=== PATIENT | female | born 1995 | race Caucasian/White ===

== ENCOUNTER 2021-10-23 19:14 | Day surgery (SDC) | payer SELFPAY ==
[2021-10-23 19:37] VITALS: BMI 38.0
[2021-10-23 21:09] LABS: SARS-CoV-2 NAA Rapid Test DETECTED (NotDetected)
[2021-10-23] MEDS ORDERED: hydrALAZINE 20 MG/ML VIAL SLOW IVP PRN (21:54)
== END 2021-10-23 22:10 | disposition home or self-care (01) ==
LOC: CSHLD/OP 19:14
PROVIDERS: ATTEND Obstetrics & Gynecology
DX: O98.513 Other viral diseases complicating pregnancy, third trimester (principal); U07.1 COVID-19; O36.8130 Decreased fetal movements, third trimester, not applicable or unspecified; Z3A.28 28 weeks gestation of pregnancy
CPT/HCPCS: U0002

== ENCOUNTER 2022-01-05 10:58 | Inpatient (IN) | payer BC ==
[2022-01-03 12:38] LABS: Hemoglobin 11.9 g/dL (12.0-15.5); Mean Corpuscular HGB CONC 33.3 g/dL (32.0-36.0); Mean Corpuscular Hemoglobin 28.1 pg (27.0-33.0); Mean Corpuscular Volume 84.2 fl (81.6-98.3); Mean Platelet Volume 11.2 fl (7.4-10.4); Platelet Count 212 10x3/uL (150-450); RBC Distribution Width 14.6 % (11.5-14.5); Red Blood Cell (RBC) Count 4.24 10x6/uL (3.90-5.03)
[2022-01-03 13:13] LABS: Hep B Surf Ag Non-Reactive S/CO (NonReactive); Syphilis Antibody Nonreactive (Nonreactive); Syphilis Antibody Index 0.08 S/CO (<1.00 Non-Reactive)
[2022-01-03 17:27] LABS: HBSAg Index 0.15 S/CO (0-0.99)
[2022-01-05] MEDS ORDERED: Morphine PF 10 MG/10 ML VIAL ONE (11:16)
[2022-01-05] MEDS ORDERED: Oxytocin 10 UNITS/ML VIAL ONE ×2 (11:20→12:36)
[2022-01-05] MEDS ORDERED: Ondansetron PF 4 MG/2 ML Vial ONE (11:20)
[2022-01-05] MEDS ORDERED: Dexamethasone 4 mg/ml Vial ONE (11:20)
[2022-01-05] MEDS ORDERED: Metoclopramide HCl 10 MG/2 ML VIAL ONE (11:20)
[2022-01-05] MEDS ORDERED: Ketorolac Tromethamine 30 MG/ML VIAL ONE (11:21)
[2022-01-05] MEDS ORDERED: Phenylephrine 40 MG/NS 250 ML 250 ML ONE (11:21)
[2022-01-05] MEDS ORDERED: Promethazine HCl 25 MG SUPP PR PRN (11:35)
[2022-01-05] MEDS ORDERED: Naloxone HCl 0.4 mg/ml Vial IVP PRN ×2 (11:35)
[2022-01-05] MEDS ORDERED: Meperidine HCl/PF 25 MG/ML VIAL SLOW IVP PRN (11:35)
[2022-01-05] MEDS ORDERED: Moisturizing Cream (Eucerin) 113 GM JAR TOP PRN (11:35)
[2022-01-05] MEDS ORDERED: Ondansetron HCl/PF 4 MG/2 ML Vial IVP PRN (11:35)
[2022-01-05] MEDS ORDERED: Promethazine HCl 25 MG/ML VIAL IM PRN ×3 (11:35→14:55)
[2022-01-05] MEDS ORDERED: Fentanyl 100 MCG/2 ML VIAL SLOW IVP PRN (11:35)
[2022-01-05] MEDS ORDERED: Ondansetron PF 4 MG/2 ML Vial IVP PRN ×3 (11:35→15:40)
[2022-01-05] MEDS ORDERED: Naloxone HCl 0.4 mg/ml Vial IV PRN (11:35)
[2022-01-05] MEDS ORDERED: diphenhydrAMINE 50 MG/ML VIAL IVP PRN (11:35)
[2022-01-05 11:43] VITALS: BMI 42.4
[2022-01-05] MEDS ORDERED: Ketorolac Tromethamine 30 MG/ML VIAL IVP SCH (11:45)
[2022-01-05] MEDS ORDERED: Communication Order-Pharmacy FS SCH (11:45)
[2022-01-05] MEDS ORDERED: ceFAZolin 2 GM/Dextrose 50 ML IVPB ONE (11:49)
[2022-01-05] MEDS ORDERED: Midazolam HCl 2 mg/2 ml Vial ONE ×2 (12:14→12:29)
[2022-01-05] MEDS ORDERED: diphenhydrAMINE 50 MG/ML VIAL ONE (12:14)
[2022-01-05] MEDS ORDERED: PHENYLEPHRINE-NS 100 MCG/ML 10 ML SYRINGE ONE (12:56)
[2022-01-05] MEDS ORDERED: NS w/ Oxytocin 30 units 500 ML IV SCH ×2 (14:55→15:45)
[2022-01-05] MEDS ORDERED: Boostrix 0.5 ML (Tdap) VIAL IM ONE (14:55)
[2022-01-05] MEDS ORDERED: ceFAZolin 2 GM/Dextrose 50 ML 2 GM in Premix Bag 1 BAG IVPB SCH (14:55)
[2022-01-05] MEDS ORDERED: diphenhydrAMINE 25 MG CAP PO PRN (14:55)
[2022-01-05] MEDS ORDERED: Misoprostol 200 MCG TAB PR PRN (14:55)
[2022-01-05] MEDS ORDERED: Famotidine/PF 20 mg/2ml Vial SLOW IVP PRN (14:55)
[2022-01-05] MEDS ORDERED: hydrALAZINE 20 MG/ML VIAL SLOW IVP PRN ×3 (14:55→15:40)
[2022-01-05] MEDS ORDERED: Bicitra 30 ML UDCUP PO PRN (14:55)
[2022-01-05] MEDS ORDERED: Lactated Ringer's 1,000 ML IV SCH ×2 (14:55)
[2022-01-05] MEDS ORDERED: Preparation H Ointment 28 GM TUBE PR PRN (15:40)
[2022-01-05] MEDS ORDERED: Benzocaine-Menthol 82.5 ML CAN TOP PRN (15:40)
[2022-01-05] MEDS ORDERED: Milk Of Magnesia 30 ML UDCUP PO PRN (15:40)
[2022-01-05] MEDS ORDERED: Misoprostol 200 MCG TAB VAG PRN (15:40)
[2022-01-05] MEDS ORDERED: Bisacodyl 10 MG SUPP PR PRN (15:40)
[2022-01-05] MEDS ORDERED: Lanolin Ointment 7 GM TUBE TOP PRN (15:40)
[2022-01-05] MEDS ORDERED: Witch Hazel-Glycerin 1 EACH JAR TOP PRN (15:43)
[2022-01-05] MEDS: Ferrous Sulfate 325 MG TAB PO SCH (18:33)
[2022-01-05] MEDS: Ketorolac Tromethamine 30 MG/ML VIAL IVP PRN (18:41)
[2022-01-05] MEDS: diphenhydrAMINE 25 MG CAP PO PRN (20:40)
[2022-01-05] MEDS ORDERED: Docusate 100 MG CAP PO SCH (21:00)
[2022-01-05] MEDS ORDERED: Ferrous Sulfate 325 MG TAB PO SCH (21:00)
[2022-01-05] MEDS ORDERED: Zolpidem Tartrate 5 MG TAB PO PRN (23:45)
[2022-01-05] MEDS ORDERED: HYDROcodone/Acetaminophen 5/325 mg Tablet PO PRN (23:45)
[2022-01-06] MEDS: Simethicone Chewable 80 MG TAB PO PRN ×2 (00:15→20:11)
[2022-01-06] MEDS: Ketorolac Tromethamine 30 MG/ML VIAL IVP PRN (00:31)
[2022-01-06 05:07] LABS: Hemoglobin 10.2 g/dL (12.0-15.5); Mean Corpuscular Hemoglobin 27.9 pg (27.0-33.0); Mean Corpuscular Volume 84.4 fl (81.6-98.3); Mean Platelet Volume 11.3 fl (7.4-10.4); Platelet Count 189 10x3/uL (150-450); RBC Distribution Width 14.2 % (11.5-14.5); Red Blood Cell (RBC) Count 3.66 10x6/uL (3.90-5.03); White Blood Cell (WBC) Count 16.9 10x3/uL (3.5-10.5)
[2022-01-06] MEDS: diphenhydrAMINE 25 MG CAP PO PRN ×2 (06:35→12:49)
[2022-01-06] MEDS: Ferrous Sulfate 325 MG TAB PO SCH ×2 (08:04→18:53)
[2022-01-06] MEDS: Prenatal Vitamin 1 TAB PO SCH (09:43)
[2022-01-06] MEDS: Docusate 100 MG CAP PO SCH ×2 (09:44→21:26)
[2022-01-06] MEDS: HYDROcodone/Acetaminophen 5/325 mg Tablet PO PRN ×2 (09:48→21:27)
[2022-01-06] MEDS: Ibuprofen 800 MG TAB PO SCH ×2 (13:05→21:26)
[2022-01-06] MEDS ORDERED: Ibuprofen 800 MG TAB PO SCH (14:00)
[2022-01-07] MEDS: HYDROcodone/Acetaminophen 5/325 mg Tablet PO PRN ×3 (03:01→13:31)
[2022-01-07] MEDS: Ibuprofen 800 MG TAB PO SCH ×2 (05:04→13:31)
[2022-01-07] MEDS: Simethicone Chewable 80 MG TAB PO PRN (05:04)
[2022-01-07] MEDS: Ferrous Sulfate 325 MG TAB PO SCH (07:20)
[2022-01-07] MEDS: Prenatal Vitamin 1 TAB PO SCH (07:52)
[2022-01-07] MEDS: Docusate 100 MG CAP PO SCH (07:53)
[2022-01-07 11:28] VITALS: BP 113/55; TEMP 98.1
== END 2022-01-07 16:40 | disposition home or self-care (01) | DRG 787 ==
LOC: CSHLD 10:58 → CSHPED 16:20 → CSHPP 01-06 18:36
PROVIDERS: ADMIT Obstetrics & Gynecology; ATTEND Obstetrics & Gynecology
PROC: 10D00Z1 Extraction of Products of Conception, Low, Open Approach (ICD-10-PCS; principal; 2022-01-05)
DX: O33.5XX0 Maternal care for disproportion due to unusually large fetus, not applicable or unspecified (principal); O99.354 Diseases of the nervous system complicating childbirth; Z3A.39 39 weeks gestation of pregnancy; Z37.0 Single live birth; O36.8930 Maternal care for other specified fetal problems, third trimester, not applicable or unspecified; Z86.16 Personal history of COVID-19; E66.9 Obesity, unspecified; O99.214 Obesity complicating childbirth; G43.909 Migraine, unspecified, not intractable, without status migrainosus; F41.9 Anxiety disorder, unspecified; O99.344 Other mental disorders complicating childbirth; Z79.899 Other long term (current) drug therapy; Z79.82 Long term (current) use of aspirin
CPT/HCPCS: 36415; 51702; 85027; 86780; 86850; 86900; 86901; 87340; J1100; J1200; J1885; J2250; J2274; J2405; J2590; J2765

== ENCOUNTER 2022-01-14 21:03 | Emergency (ER) | payer BC ==
[2022-01-14 22:26] LABS: #Monocytes 0.4 10x3/uL (0.0-1.1); #Neutrophils 3.7 10x3/uL (1.5-8.4); %Basophils 0.4 % (0.0-2.0); %Lymphocytes 26.8 % (18.0-47.0); %Neutrophils 64.9 % (40.0-75.0); Hemoglobin 10.2 g/dL (12.0-15.5); Mean Corpuscular HGB CONC 32.6 g/dL (32.0-36.0); Mean Corpuscular Hemoglobin 28.2 pg (27.0-33.0); Mean Corpuscular Volume 86.5 fl (81.6-98.3); Mean Platelet Volume 10.3 fl (7.4-10.4); Platelet Count 208 10x3/uL (150-450); RBC Distribution Width 13.7 % (11.5-14.5); Red Blood Cell (RBC) Count 3.62 10x6/uL (3.90-5.03); White Blood Cell (WBC) Count 5.7 10x3/uL (3.5-10.5)
[2022-01-14 22:34] LABS: Bilirubin Neg (Negative); Blood, Urine 50 (Negative); Clarity Clear (Clear); Glucose, Urine (Dipstick) Normal (Negative); Ketone, Urine 5 mg/dL (Negative); Leukocyte Negative (Negative); Nitrite Negative (Negative); Protein, Urine (Dipstick) 15 mg/dl (Neg-Trace); Specific Gravity, Urine 1.025 (1.002-1.036)
[2022-01-14 22:47] LABS: ALT (SGPT) 14 U/L (8-55); AST (SGOT) 17 U/L (5-34); Albumin 3.3 g/dL (3.5-5.0); Alkaline Phosphatase 106 U/L (40-110); Anion Gap 14 mmol/L (10-20); BUN (Urea Nitrogen) 15 mg/dL (7.0-18.7); Bilirubin, Total 0.3 mg/dL (0.2-1.2); Calc. Creatinine Clearance 0 mL/min (70-130); Calcium 8.6 mg/dL (7.8-10.44); Carbon Dioxide 21 mmol/L (22-29); Chloride 109 mmol/L (98-107); Globulin 2.9 g/dL (2.4-3.5); Glucose 103 mg/dL (70-105); Potassium 3.7 mmol/L (3.5-5.1); Protein, Total 6.2 g/dL (6.0-8.3); Sodium 140 mmol/L (136-145)
[2022-01-14 23:01] LABS: Bacteria/HPF 1+ HPF (None Seen); Mucous/LPF 1+ LPF (<2+); Squamous Epithelial 0-3 HPF (0-3)
[2022-01-14] MEDS ORDERED: Ketorolac Tromethamine 30 MG/ML VIAL ONE (23:28)
[2022-01-14] MEDS ORDERED: Furosemide 40 MG/4 ML VIAL ONE (23:29)
[2022-01-15] MEDS ORDERED: Labetalol HCl 200 MG TAB PO SCH (00:45)
== END 2022-01-15 00:55 | disposition home or self-care (01) ==
LOC: CSHERS 21:03
DX: O16.5 Unspecified maternal hypertension, complicating the puerperium (principal); O99.893 Other specified diseases and conditions complicating puerperium; R51.9 Headache, unspecified
CPT/HCPCS: 36415; 71045; 80053; 81003; 81015; 83605; 83880; 85025; 93005; 96374; 96375; J1885; J1940